=== PATIENT | female | born 1995 | race Caucasian/White ===

== ENCOUNTER 2019-03-18 19:50 | Emergency (ER) | payer OTHER ==
[2019-03-18] MEDS: IBUPROFEN 600 MG TAB PO (20:43)
[2019-03-18] MEDS: DIPHENHYDRAMINE 25 MG CAP PO (20:43)
== END 2019-03-18 21:03 | disposition home or self-care (01) ==
LOC: FTE 21:03
DX: H01.001 Unspecified blepharitis right upper eyelid (principal)
CPT/HCPCS: 99283; Z7502